=== PATIENT | female | born 1945 | race Caucasian/White ===

== ENCOUNTER 2016-08-19 07:05 | Outpatient (CLI) | payer MEDICARE, OTHER | END 2016-08-19 07:06 | disposition home or self-care (01) | DX: I10 Essential (primary) hypertension (principal) ==

== ENCOUNTER 2016-08-20 10:03 | Outpatient (CLI) | payer MEDICARE, OTHER | END 2016-08-20 10:04 | disposition home or self-care (01) | DX: N18.3 Chronic kidney disease, stage 3 (moderate) (principal) ==

== ENCOUNTER 2017-09-29 09:27 | Outpatient (CLI) | payer MEDICARE, OTHER ==
--- NOTE | 2017-09-29 13:56 | XRAY Report ---
CHEST TWO VIEWS: 09/29/2017 HISTORY: Cough. COMPARISON: 04/12/2013. FINDINGS: Postsurgical changes cervical spine as before. Normal heart size. Mildly coarse lung markings, right lower lung. Possible nodular density projected over the 4th right anterior rib at its junction with the 8th posterior rib. No other suspicious nodules. Densely calcified posterior mid right lung mass, as before. No pleural effusion or pneumothorax. Mild degenerative change in the spine. IMPRESSION: POSSIBLE NODULAR DENSITY RIGHT LOWER LUNG VERSUS SUPERIMPOSITION OF STRUCTURES. SUGGEST FOLLOWUP CHEST X-RAY IN 6-8 WEEKS AFTER ANY APPROPRIATE MEDICAL THERAPY. STABLE CALCIFIED POSTERIOR LEFT HEMITHORAX MASS. TD: 09/29/2017 13:38
[2017-09-29 17:58] LABS: ALBUMIN 4.3 g/dL (3.2-5.5); ALBUMIN/GLOBULIN RATIO 1.1 (1.0-2.2); BILIRUBIN,TOTAL 0.9 mg/dL (0.2-1.0); CALCIUM 9.3 mg/dL (8.5-10.3); CREATININE 1.1 mg/dL (0.4-1.0); TOTAL PROTEIN 8.1 g/dL (6.7-8.2)
[2017-09-29 18:02] LABS: BASOPHILS # (AUTO) 0.1 10^3/uL (0.0-0.1); BASOPHILS % (AUTO) 1.2 %; EOSINOPHILS # (AUTO) 0.2 10^3/uL (0.0-0.7); EOSINOPHILS % (AUTO) 3.6 %; HGB - HEMOGLOBIN 10.5 g/dL (12.0-16.0); LYMPHOCYTES # (AUTO) 1.5 10^3/uL (1.5-3.5); LYMPHOCYTES % (AUTO) 25.3 %; MEAN CORPUSCULAR HEMOGLOBIN 21.3 pg (27.0-31.0); MEAN CORPUSCULAR HGB CONC 30.4 g/dL (32.0-36.0); MEAN PLATELET VOLUME 7.5 fL (7.9-10.8); MONOCYTES # (AUTO) 0.8 10^3/uL (0.0-1.0); MONOCYTES % (AUTO) 14.1 %; NEUTROPHILS # (AUTO) 3.3 10^3/uL (1.5-6.6); NEUTROPHILS % (AUTO) 55.8 %; PLT - PLATELET COUNT 342 10^3/uL (130-450); RED BLOOD COUNT 4.92 10^6/uL (4.20-5.40); RED CELL DISTRIBUTION WIDTH 17.8 % (12.0-15.0); WHITE BLOOD COUNT 5.9 x10^3/uL (4.8-10.8)
== END 2017-09-29 09:28 | disposition home or self-care (01) ==
LOC: LAB.F 09:27
PROVIDERS: ATTEND Physician Assistant Medical
DX: R93.8 Abnormal findings on diagnostic imaging of other specified body structures (principal); R05 Cough
CPT/HCPCS: 36415; 71046; 80053; 85025

== ENCOUNTER 2017-11-23 08:28 | Outpatient (CLI) | payer MEDICARE, OTHER ==
--- NOTE | 2017-11-23 10:25 | XRAY Report ---
TWO VIEW CHEST: 11/23/2017 CLINICAL INDICATION: Followup abnormal chest x-ray. FINDINGS: Frontal and lateral views of the chest are compared to previous films of 09/29/2017. The cardiac silhouette is within normal limits. Previously noted possible nodule in the right mid lung has resolved. Calcification in the left posterior chest is stable from CT 08/13/2011. No new infiltrate, effusion, or pneumothorax is present. IMPRESSION: RESOLUTION OF PREVIOUSLY SEEN POSSIBLE RIGHT LUNG NODULE. NO EVIDENCE OF ACUTE CARDIOPULMONARY DISEASE. TD: 11/23/2017 09:48
== END 2017-11-23 08:29 | disposition home or self-care (01) ==
LOC: DI 08:28
PROVIDERS: ATTEND Physician Assistant Medical
DX: R91.8 Other nonspecific abnormal finding of lung field (principal)
CPT/HCPCS: 71046

== ENCOUNTER 2018-05-09 10:56 | Outpatient (CLI) | payer MEDICARE, OTHER ==
[2018-05-09 17:55] LABS: BASOPHILS # (AUTO) 0.1 10^3/uL (0.0-0.1); BASOPHILS % (AUTO) 1.2 %; EOSINOPHILS # (AUTO) 0.1 10^3/uL (0.0-0.7); EOSINOPHILS % (AUTO) 2.2 %; HGB - HEMOGLOBIN 8.5 g/dL (12.0-16.0); LYMPHOCYTES # (AUTO) 1.6 10^3/uL (1.5-3.5); LYMPHOCYTES % (AUTO) 34.6 %; MEAN CORPUSCULAR VOLUME 60.1 fL (81.0-99.0); MEAN PLATELET VOLUME 8.6 fL (7.9-10.8); MONOCYTES # (AUTO) 0.6 10^3/uL (0.0-1.0); MONOCYTES % (AUTO) 13.4 %; NEUTROPHILS # (AUTO) 2.3 10^3/uL (1.5-6.6); NEUTROPHILS % (AUTO) 48.6 %; PLT - PLATELET COUNT 329 10^3/uL (130-450); RED BLOOD COUNT 4.71 10^6/uL (4.20-5.40); RED CELL DISTRIBUTION WIDTH 19.6 % (12.0-15.0); WHITE BLOOD COUNT 4.7 x10^3/uL (4.8-10.8)
[2018-05-09 18:20] LABS: PLATELET ESTIMATE, MANUAL NORMAL (130-450,000) (NORMAL); PLATELET MORPHOLOGY NORMAL APPEARANCE (NORMAL)
[2018-05-09 18:24] LABS: ALBUMIN 4.4 g/dL (3.2-5.5); ALBUMIN/GLOBULIN RATIO 1.3 (1.0-2.2); BILIRUBIN,TOTAL 1.1 mg/dL (0.2-1.0); CALCIUM 9.2 mg/dL (8.5-10.3); TOTAL PROTEIN 7.8 g/dL (6.7-8.2)
[2018-05-09 19:16] LABS: MAGNESIUM 2.4 mg/dL (1.7-2.8)
== END 2018-05-09 10:57 | disposition home or self-care (01) ==
LOC: LAB.F 10:56
PROVIDERS: ATTEND Physician Assistant Medical
DX: N28.9 Disorder of kidney and ureter, unspecified (principal); D50.9 Iron deficiency anemia, unspecified; R25.2 Cramp and spasm; Z12.11 Encounter for screening for malignant neoplasm of colon; Z12.12 Encounter for screening for malignant neoplasm of rectum
CPT/HCPCS: 36415; 80053; 82728; 83540; 83735; 84466; 85025

== ENCOUNTER 2018-05-27 11:09 | Emergency (ER) | payer MEDICARE, OTHER ==
[2018-05-27 11:42] LABS: BASOPHILS # (AUTO) 0.1 10^3/uL (0.0-0.1); BASOPHILS % (AUTO) 1.3 %; EOSINOPHILS # (AUTO) 0.1 10^3/uL (0.0-0.7); EOSINOPHILS % (AUTO) 1.8 %; HGB - HEMOGLOBIN 9.2 g/dL (12.0-16.0); LYMPHOCYTES # (AUTO) 1.5 10^3/uL (1.5-3.5); LYMPHOCYTES % (AUTO) 28.8 %; MEAN CORPUSCULAR HEMOGLOBIN 19.3 pg (27.0-31.0); MEAN CORPUSCULAR HGB CONC 30.3 g/dL (32.0-36.0); MEAN CORPUSCULAR VOLUME 63.6 fL (81.0-99.0); MEAN PLATELET VOLUME 8.2 fL (7.9-10.8); MONOCYTES # (AUTO) 0.7 10^3/uL (0.0-1.0); MONOCYTES % (AUTO) 14.4 %; NEUTROPHILS # (AUTO) 2.8 10^3/uL (1.5-6.6); NEUTROPHILS % (AUTO) 53.7 %; PLT - PLATELET COUNT 365 10^3/uL (130-450); RED BLOOD COUNT 4.77 10^6/uL (4.20-5.40); RED CELL DISTRIBUTION WIDTH 25.4 % (12.0-15.0); WHITE BLOOD COUNT 5.2 x10^3/uL (4.8-10.8)
[2018-05-27 11:52] LABS: ALBUMIN 4.3 g/dL (3.2-5.5); ALBUMIN/GLOBULIN RATIO 1.3 (1.0-2.2); BILIRUBIN,TOTAL 0.8 mg/dL (0.2-1.0); CALCIUM 9.3 mg/dL (8.5-10.3); CREATININE 0.9 mg/dL (0.4-1.0); TOTAL PROTEIN 7.7 g/dL (6.7-8.2)
[2018-05-27 12:15] LABS: BILIRUBIN,URINE NEGATIVE (NEGATIVE); GLUCOSE, URINE (UA) NEGATIVE (NEGATIVE); KETONES,URINE (UA) NEGATIVE (NEGATIVE); LEUKOCYTE ESTERASE, URINE TRACE (NEGATIVE); NITRITE,URINE NEGATIVE (NEGATIVE); OCCULT BLOOD,URINE NEGATIVE (NEGATIVE); PH,URINE 6.5 PH (5.0-7.5); PROTEIN,URINE NEGATIVE (NEGATIVE); UROBILINOGEN,URINE 0.2 (NORMAL) E.U./dL (NORMAL)
[2018-05-27 12:16] LABS: CLARITY,URINE CLEAR (CLEAR)
--- NOTE | 2018-05-27 12:18 | XRAY Report ---
Reason: cough Procedure Date: 05/27/2018 Accession Number: [id number] / [id number] Procedure: XR - Chest 2 View X-Ray CPT Code: 15452 FULL RESULT: EXAM: CHEST RADIOGRAPHY EXAM DATE: 05/27/2018 11:37 AM. CLINICAL HISTORY: Cough. COMPARISON: CHEST 2 VIEW 11/23/2017 8:40 AM CHEST 2 VIEW 09/29/2017 10:54 AM CHEST 2 VIEW PA/LAT 04/12/2013 8:50 AM. TECHNIQUE: 2 views. FINDINGS: Lungs/Pleura: A posterior 3 cm left lung mass, paraspinal in location appears similar to prior studies dating back to 2012. Acute airspace disease detected. No pleural effusion or pneumothorax. Mediastinum: Heart and mediastinal contours are stable. Other: Cervical spinal fusion hardware is again noted. IMPRESSION: No acute cardiopulmonary abnormality. Redemonstration of a 3 cm calcified left posterior lung mass. While this has not significantly changed since 2012, I am unable to determine the etiology on plain radiograph. If the etiology is unknown and clarification is clinically warranted, consider routine outpatient chest CT. RAD[facility]
[2018-05-27 12:23] LABS: BACTERIA,URINE None Seen /HPF (None Seen); RBC,URINE None Seen /HPF (0-5); SQUAMOUS EPITHELIAL CELL,UR MOD Squamous (<= Few)
--- NOTE | 2018-05-27 12:25 | ED Physician Documentation ---
History of Present Illness - Stated complaint Stated Complaint: COUGH/ITCHING/LEG CRAMPS/WEAKNESS - Chief complaint Chief Complaint: General - History obtained from History obtained from: Patient - History of Present Illness Timing: Other (1 month of cough, worse in the last 2 weeks. Also with fatigue and leg cramps. She would like a transfusion, has appt 06/08 with heme/onc but feels she cannot wait.) Review of Systems Constitutional: reports: Fatigue. denies: Fever, Chills Cardiac: denies: Chest pain / pressure, Palpitations Respiratory: reports: Dyspnea, Cough GI: denies: Abdominal Pain, Nausea, Vomiting, Constipation, Diarrhea, Hematemesis, Bloody / black stool Skin: reports: Other (diffuse itching) PD PAST MEDICAL HISTORY - Past Medical History Cardiovascular: Hypertension, Other Respiratory: Asthma Endocrine/Autoimmune: None GI: GERD : Renal insuffiency, Frequency HEENT: None Psych: Depression, Anxiety, Claustrophobia Musculoskeletal: Osteoarthritis, Osteopenia Derm: None - Past Surgical History General: Appendectomy, Colonoscopy, EGD Ortho: Spine surgery /BARTACKER: Hysterectomy HEENT: Tonsil/Adenoidectomy - Present Medications Home Medications: Ambulatory Orders Medication Instructions Recorded Confirmed Benazepril/Hydrochlorothiazide 2 each PO QAM 07/10/13 05/27/18 [Benazepril-Hctz 20-12.5 mg Tab] Cholecalciferol (Vitamin D3) 50,000 unit PO ONCE 07/10/13 05/27/18 [Vitamin D3] Omeprazole 20 mg PO DAILY 07/10/13 05/27/18 Aspirin 81 mg PO 05/27/18 Benzonatate [Tessalon Perle] 100 - 200 mg PO TID PRN #30 capsule 05/27/18 Iron,Carbonyl [Iron Chews] 15 mg PO 05/27/18 hydrOXYzine PAMOATE [Vistaril] 25 mg PO Q6H PRN #20 capsule 05/27/18 predniSONE [Deltasone] 20 mg PO [id number] #21 tab 05/27/18 - Allergies Allergies/Adverse Reactions: Allergies Allergy/AdvReac Type Severity Reaction Status Date / Time codeine Allergy severe Verified 07/10/13 14:16 lethargy PD ED PE NORMAL - Vitals Vital signs reviewed: Yes - General General: Alert and oriented X 3, No acute distress - HEENT HEENT: PERRL, EOMI, Pharynx benign - Neck Neck: Supple, no meningeal sign, No bony TTP - Cardiac Cardiac: RRR, No murmur - Respiratory Respiratory: Other (Mild expiratory wheezes, no distress) - Abdomen Abdomen: Non tender - Extremities Extremities: No edema, No calf tenderness / cord - Neuro Neuro: Alert and oriented X 3, Normal speech - Psych Psych: Normal mood, Normal affect Results - Vitals Vitals: Vital Signs - 24 hr 05/27/18 11:17 Temperature 36.5 C Heart Rate 88 Respiratory 20 Rate Blood Pressure 131/70 H O2 Saturation 95 Oxygen O2 Source [] Nasal cannula O2 Source Room air - Labs Labs: Laboratory Tests 05/27/18 05/27/18 05/27/18 11:31 11:31 12:05 WBC 5.2 RBC 4.77 Hgb 9.2 L Hct 30.3 L MCV 63.6 L MCH 19.3 L MCHC 30.3 L RDW 25.4 H Plt Count 365 MPV 8.2 Neut # (Auto) 2.8 Lymph # (Auto) 1.5 [place] # (Auto) 0.7 Eos # (Auto) 0.1 Baso # (Auto) 0.1 Absolute Nucleated RBC 0.00 Nucleated RBC % 0.1 Sodium 134 L Potassium 4.2 Chloride 97 L Carbon Dioxide 29 Anion Gap 8.0 BUN 15 Creatinine 0.9 Estimated GFR (MDRD) 61 L Glucose 93 Calcium 9.3 Total Bilirubin 0.8 AST 31 ALT 23 Alkaline Phosphatase 117 Total Protein 7.7 Albumin 4.3 Globulin 3.4 Albumin/Globulin Ratio 1.3 Lipase 68 H Urine Color YELLOW Urine Clarity CLEAR Urine pH 6.5 Ur Specific [place] <=1.005 Urine Protein NEGATIVE Urine Glucose (UA) NEGATIVE Urine Ketones NEGATIVE Urine Occult Blood NEGATIVE Urine Nitrite NEGATIVE Urine Bilirubin NEGATIVE Urine Urobilinogen 0.2 (NORMAL) Ur Leukocyte Esterase TRACE H Urine RBC None Seen Urine WBC 0-3 Ur Squamous Epith Cells MOD Squamous H Urine Bacteria None Seen Ur Microscopic Review INDICATED Urine Culture Comments NOT INDICATED - Rads (name of study) 2v chest Radiology: EMP read contemporaneously (3cm left posterior lung mass unchanges since 2012. Review of chart shows CT done for same in 2012 and it was benign.) PD MEDICAL DECISION MAKING - ED course ED course: 72-year-old woman presents with fatigue, cough, and other nonspecific complaints. Her main concern today is that she might need a transfusion and request 1. Her hemoglobin does not merit to this. In the meantime we will start her on some prednisone for cough in the setting of underlying COPD, hydroxyzine which should help with the leg cramps and the itching and Tessalon. Departure - Departure Disposition: 01 Home, Self Care Clinical Impression: Itching Fatigue Qualifiers: Fatigue type: unspecified Qualified Code(s): R53.83 - Other fatigue Condition: Good Record reviewed to determine appropriate education?: Yes Instructions: Fatigue Manage, COPD Prescriptions: Benzonatate [Tessalon Perle] 100 - 200 mg PO TID PRN #30 capsule PRN Reason: Cough hydrOXYzine PAMOATE [Vistaril] 25 mg PO Q6H PRN #20 capsule PRN Reason: itching or cramps predniSONE [Deltasone] 20 mg PO [id number] #21 tab Comments: As discussed, your anemia is not too bad and does not merit transfusion at this juncture but does need to be followed. Keep the appointment to have in a couple of weeks with the oncologist and I also recommend following up with your primary care physician for further assessment of your fatigue. Return for new or worsening symptoms. Your blood pressure was elevated today on check into the emergency department. This does not mean that you have hypertension, it is a common phenomenon to come to the emergency department and have elevated blood pressure. I recommend that you see your primary care physician within the week to have it rechecked when you are feeling better.
[2018-05-27 12:54] VITALS: BP 118/78
== END 2018-05-27 12:56 | disposition home or self-care (01) ==
LOC: ED 11:09
DX: L29.9 Pruritus, unspecified (principal); R53.83 Other fatigue; R25.2 Cramp and spasm; I10 Essential (primary) hypertension; Z79.82 Long term (current) use of aspirin
CPT/HCPCS: 36415; 71046; 80053; 81001; 81003; 83690; 85025; 87086; 99283

== ENCOUNTER 2018-07-05 08:57 | Day surgery (SDC) | payer MEDICARE, OTHER ==
[~2018-07-05 08:57] MED LIST: LACTATED RINGERS 1,000 ML IV ONE
[2018-07-05] MEDS ORDERED: fentaNYL 250 MCG/5 ML VIAL IVP ONE (10:30)
[2018-07-05] MEDS ORDERED: MIDAZOLAM 2 MG/2 ML VIAL IVP ONE (10:30)
--- NOTE | 2018-07-05 10:59 | ANESTHESIA ---
Pre-Anesthesia VS, & Labs - Diagnosis positive cologuard - Procedure colonoscopy Vital Signs: Temp Pulse Resp BP Pulse Ox 36.3 C L 94 16 135/97 H 95 07/05/18 09:06 07/05/18 09:06 07/05/18 09:06 07/05/18 09:06 07/05/18 09:06 Height 5 ft 10 in Weight (kg) 94.7 kg Body Mass Index 28.7 - NPO >8 hours - Is Patient ?: Not Applicable Home Medications and Allergies Omeprazole 20 mg PO DAILY 07/10/13 Aspirin 81 mg PO DAILY 05/27/18 Benazepril/Hydrochlorothiazide [Lotensin Hct 20-12.5 mg Tablet] 1 tab ORAL DAILY 06/08/18 Multivitamin [Multivitamins] 1 tab ORAL DAILY 06/08/18 Allergies/Adverse Reactions: Allergies Allergy/AdvReac Type Severity Reaction Status Date / Time codeine Allergy severe Verified 07/10/13 14:16 lethargy Anes History & Medical History - Anesthetic History Anesthesia Complications: reports: No previous complications Family history of Anesthesia Complications: Denies Family history of Malignant Hyperthermia: Denies - Medical History Cardiovascular: reports: Hypertension, Other Pulmonary: reports: Asthma Gastrointestinal: reports: GERD Urinary: reports: None Musculoskeletal: reports: Osteoarthritis, Osteopenia Endocrine/Autoimmune: reports: None Skin: reports: None Smoking Status: Former smoker - Surgical History General: Appendectomy, Colonoscopy Eyes Ears Nose Throat (EENT): Tonsil/Adenoidectomy Gynecologic: Hysterectomy Orthopedic: Spine surgery Exam General: Alert, Oriented x3, Cooperative, No acute distress Mouth Openin Fingerbreadth (FB) Neck Mobility: Normal Mallampati classification: II Thyromental Distance: 4-6 cm Respiratory: Lungs clear, Normal breath sounds, No respiratory distress, No accessory muscle use Cardiovascular: Regular rate, Normal S1, Normal S2, No murmurs Plan Anesthesia Type: MAC Consent for Procedure(s) Verified and Reviewed: Yes Code Status: Attempt Resuscitation ASA classification: 2-Mild systemic disease Is this case an emergency?: No
[2018-07-05] MEDS ORDERED: PROPOFOL 200 MG/20 ML VIAL IVP ONE (11:47)
--- NOTE | 2018-07-05 12:16 | PROCEDURE REPORT ---
DATE OF SERVICE: 07/05/2018 Physician: Bryce Mujica MD SURGEON: Bryce Mujica MD. PREOPERATIVE DIAGNOSIS: Positive Cologuard. POSTOPERATIVE DIAGNOSIS: Arteriovenous malformation, cecum. PROCEDURE: Colonoscopy. INDICATION: The patient is a 72-year-old woman who had a positive Cologuard study, requesting colonoscopy. PROCEDURE IN DETAIL: The risks and benefits were explained to patient. She agreed to the procedure. She was taken to the operating room, given sedation, and a timeout was performed. Everyone in the room agreed to the procedure. We began by advancing a well-lubricated colonoscope through the anal vault up to the cecum. An arteriovenous malformation was seen in the wall of the cecum. A picture was taken. The scope was then slowly withdrawn, examining all mucosal surfaces. No other abnormalities were seen. The procedure was terminated. The patient was taken to recovery in stable condition. ESTIMATED BLOOD LOSS: Zero. SPECIMENS: None. COMPLICATIONS: None. PLAN: Repeat colonoscopy in 10 years. TD: 07/05/2018 11:56 MTDD
[2018-07-05 12:26] VITALS: BP 129/84
== END 2018-07-05 08:58 | disposition home or self-care (01) ==
LOC: SDS 08:57
PROVIDERS: ATTEND Surgery
PROC: 0DJD8ZZ Inspection of Lower Intestinal Tract, Via Natural or Artificial Opening Endoscopic (ICD-10-PCS; principal; 2018-07-05 10:00)
DX: K55.21 Angiodysplasia of colon with hemorrhage (principal); I10 Essential (primary) hypertension; J44.9 Chronic obstructive pulmonary disease, unspecified; J45.909 Unspecified asthma, uncomplicated; K21.9 Gastro-esophageal reflux disease without esophagitis; M19.90 Unspecified osteoarthritis, unspecified site; M85.80 Other specified disorders of bone density and structure, unspecified site; Z79.82 Long term (current) use of aspirin; Z87.891 Personal history of nicotine dependence
CPT/HCPCS: 45378; J7120

== ENCOUNTER 2018-08-03 13:08 | Outpatient (CLI) | payer MEDICARE, OTHER ==
--- NOTE | 2018-08-04 08:16 | Mammography Report ---
Reason: SCREENING MAMMO Procedure Date: 08/03/2018 Accession Number: [id number] / [id number] Procedure: ISAÍAS - Screening Mammo w/Segun CPT Code: FULL RESULT: EXAM: Screening Mammo w/Segun DATE: 08/03/2018 2:34 PM CLINICAL HISTORY: Routine screening. No reported personal or family history of breast cancer. TECHNIQUE: Bilateral CC and MLO views were obtained. COMPARISON: 11/14/2013 through 03/16/2011 FINDINGS: The breasts demonstrate scattered fibroglandular densities bilaterally. Bilateral breasts: There are no suspicious masses, calcifications or areas of distortion. IMPRESSION: Negative examination RECOMMENDATION: Routine annual screening unless otherwise clinically indicated. BI-RADS CATEGORY 1: Negative STANDARD QUALIFYING STATEMENTS: 1. This examination was not reviewed with the aid of Computer-Aided Detection (CAD). 2. A negative or benign imaging report should not preclude biopsy if clinically suspicious findings are present. 3. Dense breasts may obscure an underlying neoplasm. 4. This examination was reviewed with the aid of 3D breast imaging (tomosynthesis).
== END 2018-08-03 13:09 | disposition home or self-care (01) ==
LOC: DI 13:08
PROVIDERS: ATTEND Physician Assistant Medical
DX: Z12.31 Encounter for screening mammogram for malignant neoplasm of breast (principal)
CPT/HCPCS: 77063; 77067

== ENCOUNTER 2018-08-04 12:47 | Outpatient (CLI) | payer MEDICARE, OTHER | END 2018-08-04 12:48 | disposition home or self-care (01) | LOC: DI 12:47 | PROVIDERS: ATTEND Physician Assistant Medical | DX: Z78.0 Asymptomatic menopausal state (principal); Z53.9 Procedure and treatment not carried out, unspecified reason ==

== ENCOUNTER 2018-08-16 10:08 | Outpatient (CLI) | payer MEDICARE, OTHER ==
--- NOTE | 2018-08-17 08:34 | DEXA Report ---
Reason: ASYMPTOMATIC MENOPAUSAL STATE Procedure Date: 08/16/2018 Accession Number: [id number] / [id number] Procedure: DEX - Dexa Spine and/or Hip CPT Code: FULL RESULT: EXAM: Dexa Spine and/or Hip DATE: 08/16/2018 11:20 AM CLINICAL HISTORY: ASYMPTOMATIC MENOPAUSAL STATE TECHNIQUE: Dual energy x-ray absorptiometry (DXA) was performed on a [employer] System. Regions measured are the AP Spine, femoral neck, and if needed forearm. COMPARISON: None. In accordance with the International Society for Clinical Densitometry (ISCD) guidelines, data from previous exams may be reanalyzed using current recommendations and techniques. This is done to allow a more accurate basis for comparison with the current study. FINDINGS: The data for the lumbar spine is as follows: BMD (g/cm/cm) T-SCORE Z-SCORE REGION L1 1.019 -0.9 -0.1 L2 1.155 -0.4 0.4 L3 1.137 -0.5 0.3 L4 1.335 1.1 1.9 TOTAL 1.155 -0.2 0.6 NOTE: All evaluable vertebrae are used for classification The data for the hip is as follows: BMD (g/cm/cm) T-SCORE Z-SCORE REGION Neck 0.817 -1.6 -0.3 TOTAL 0.830 -1.4 -0.4 NOTE: The femoral neck or total proximal femur, whichever is lowest, is used for classification. IMPRESSION: THE WHO CLASSIFICATION BASED ON THE INTERNATIONAL REFERENCE STANDARD IS OSTEOPENIA. THE FRACTURE RISK IS INCREASED. RECOMMENDATION: Patients with diagnosis of osteoporosis or osteopenia should have regular bone mineral density assessment. For those eligible for Medicare, routine testing is allowed once every 2 years. Testing frequency can be increased for patients who have rapidly progressing disease or for those who are receiving medical therapy to restore bone mass. COMMENT: World Health Organization (WHO) definitions for osteoporosis and osteopenia: NORMAL BMD: T-score at -1.0 or higher, fracture risk is low OSTEOPENIA BMD: T-score between -1.0 and -2.5, fracture risk is increased. OSTEOPOROSIS BMD: T-score at -2.5 or lower, fracture risk is high. National Osteoporosis Foundation recommends: 1. Obtain adequate dietary calcium (at least 1200 mg per day) and vitamin D (400-800 international units per day). 2. Participate, as appropriate, in regular weightbearing and muscle-strengthening exercise. 3. Avoid tobacco use and reduce alcohol and caffeine intake. 4. For more detailed information see the website at www.NOF.org.
== END 2018-08-16 10:09 | disposition home or self-care (01) ==
LOC: DI 10:08
PROVIDERS: ATTEND Physician Assistant Medical
DX: M85.88 Other specified disorders of bone density and structure, other site (principal)
CPT/HCPCS: 77080

== ENCOUNTER 2018-09-28 08:54 | Outpatient (CLI) | payer MEDICARE, OTHER ==
[2018-09-28 10:38] LABS: BASOPHILS % (AUTO) 1.4 %; EOSINOPHILS # (AUTO) 0.2 10^3/uL (0.0-0.7); EOSINOPHILS % (AUTO) 5.3 %; HGB - HEMOGLOBIN 14.8 g/dL (12.0-16.0); LYMPHOCYTES # (AUTO) 1.2 10^3/uL (1.5-3.5); LYMPHOCYTES % (AUTO) 33.4 %; MEAN CORPUSCULAR HEMOGLOBIN 31.2 pg (27.0-31.0); MEAN CORPUSCULAR HGB CONC 33.9 g/dL (32.0-36.0); MEAN PLATELET VOLUME 7.5 fL (7.9-10.8); MONOCYTES # (AUTO) 0.4 10^3/uL (0.0-1.0); MONOCYTES % (AUTO) 11.4 %; NEUTROPHILS # (AUTO) 1.7 10^3/uL (1.5-6.6); NEUTROPHILS % (AUTO) 48.5 %; PLT - PLATELET COUNT 213 10^3/uL (130-450); RED BLOOD COUNT 4.74 10^6/uL (4.20-5.40); RED CELL DISTRIBUTION WIDTH 15.9 % (12.0-15.0); WHITE BLOOD COUNT 3.6 x10^3/uL (4.8-10.8)
[2018-09-28 11:36] LABS: ALBUMIN 4.5 g/dL (3.2-5.5); ALBUMIN/GLOBULIN RATIO 1.4 (1.0-2.2); BILIRUBIN,TOTAL 1.6 mg/dL (0.2-1.0); CALCIUM 9.4 mg/dL (8.5-10.3); CREATININE 0.7 mg/dL (0.4-1.0); TOTAL PROTEIN 7.7 g/dL (6.7-8.2)
== END 2018-09-28 08:55 | disposition home or self-care (01) ==
LOC: LAB.F 08:54
PROVIDERS: ATTEND Physician Assistant Medical
DX: N28.9 Disorder of kidney and ureter, unspecified (principal); D50.9 Iron deficiency anemia, unspecified
CPT/HCPCS: 36415; 80053; 82728; 83540; 84466; 85025

== ENCOUNTER 2020-11-12 10:28 | Outpatient (CLI) | payer MEDICARE ==
[2020-11-12 11:06] LABS: BASOPHILS # (AUTO) 0.1 10^3/uL (0.0-0.1); BASOPHILS % (AUTO) 1.4 %; EOSINOPHILS # (AUTO) 0.1 10^3/uL (0.0-0.7); EOSINOPHILS % (AUTO) 2.6 %; HCT - HEMATOCRIT 44.9 % (37.0-47.0); LYMPHOCYTES # (AUTO) 1.5 10^3/uL (1.5-3.5); LYMPHOCYTES % (AUTO) 36.3 %; MEAN CORPUSCULAR HEMOGLOBIN 31.3 pg (27.0-31.0); MEAN CORPUSCULAR HGB CONC 33.4 g/dL (32.0-36.0); MEAN CORPUSCULAR VOLUME 93.5 fL (81.0-99.0); MEAN PLATELET VOLUME 8.7 fL (7.9-10.8); MONOCYTES # (AUTO) 0.6 10^3/uL (0.0-1.0); MONOCYTES % (AUTO) 14.3 %; NEUTROPHILS # (AUTO) 1.9 10^3/uL (1.5-6.6); NEUTROPHILS % (AUTO) 44.9 %; PLT - PLATELET COUNT 217 10^3/uL (130-450); RED CELL DISTRIBUTION WIDTH 13.8 % (12.0-15.0); WHITE BLOOD COUNT 4.2 x10^3/uL (4.8-10.8)
[2020-11-12 11:44] LABS: CHOL/HDL RATIO 2.4 (<4.4); CHOLESTEROL 192 mg/dL; HDL CHOLESTEROL 79 mg/dL; LDL CHOLESTEROL,CALCULATED 65 mg/dL; LDL/HDL RATIO 0.8 (<4.4); TRIGLYCERIDES 242 mg/dL; VLDL CHOLESTEROL 48 mg/dL
== END 2020-11-12 10:29 | disposition home or self-care (01) ==
LOC: LAB 10:28
PROVIDERS: ATTEND Physician Assistant
DX: Z00.00 Encounter for general adult medical examination without abnormal findings (principal); I10 Essential (primary) hypertension; D50.9 Iron deficiency anemia, unspecified
CPT/HCPCS: 36415; 80061; 83721; 85025

== ENCOUNTER 2021-10-24 07:33 | Outpatient (CLI) | payer MEDICARE ==
[2021-10-24 15:21] LABS: EOSINOPHILS # (AUTO) 0.1 10^3/uL (0.0-0.7); EOSINOPHILS % (AUTO) 2.8 %; HCT - HEMATOCRIT 41.2 % (37.0-47.0); HGB - HEMOGLOBIN 13.5 g/dL (12.0-16.0); LYMPHOCYTES # (AUTO) 1.6 10^3/uL (1.5-3.5); MEAN CORPUSCULAR HEMOGLOBIN 31.2 pg (27.0-31.0); MEAN CORPUSCULAR HGB CONC 32.8 g/dL (32.0-36.0); MEAN CORPUSCULAR VOLUME 95.2 fL (81.0-99.0); MEAN PLATELET VOLUME 9.2 fL (7.9-10.8); MONOCYTES # (AUTO) 0.5 10^3/uL (0.0-1.0); MONOCYTES % (AUTO) 13.4 %; NEUTROPHILS # (AUTO) 1.6 10^3/uL (1.5-6.6); NEUTROPHILS % (AUTO) 41.3 %; PLT - PLATELET COUNT 233 10^3/uL (130-450); RED BLOOD COUNT 4.33 10^6/uL (4.20-5.40); RED CELL DISTRIBUTION WIDTH 14.3 % (12.0-15.0)
[2021-10-24 15:41] LABS: % IRON SATURATION 23 % (20-50); ALBUMIN 4.1 g/dL (3.2-5.5); ALBUMIN/GLOBULIN RATIO 1.4 (1.0-2.2); ALKALINE PHOSPHATASE 118 IU/L (42-121); ALT ALANINE AMINOTRANSFERASE 28 IU/L (10-60); AST ASPARTATE AMINOTRANSFERASE 36 IU/L (10-42); BILIRUBIN,TOTAL 1.1 mg/dL (0.2-1.0); BUN - BLOOD UREA NITROGEN 15 mg/dL (6-20); CALCIUM 9.4 mg/dL (8.5-10.3); CARBON DIOXIDE - CO2 29 mmol/L (21-32); CHLORIDE 98 mmol/L (101-111); CHOL/HDL RATIO 2.6 (<4.4); CHOLESTEROL 167 mg/dL; CREATININE 0.8 mg/dL (0.4-1.0); GFR - MDRD 70 (>89); GLUCOSE 93 mg/dL (70-100); HDL CHOLESTEROL 65 mg/dL; IRON 79 ug/dL (28-170); LDL CHOLESTEROL,CALCULATED 70 mg/dL; LDL/HDL RATIO 1.1 (<4.4); POTASSIUM 4.2 mmol/L (3.5-5.0); SODIUM 135 mmol/L (135-145); TOTAL IRON BINDING CAPACITY 337 ug/dL (250-450); TOTAL PROTEIN 7.1 g/dL (6.7-8.2); TRANSFERRIN 241 mg/dL (192-382); TRIGLYCERIDES 161 mg/dL; VLDL CHOLESTEROL 32 mg/dL
[2021-10-24 15:49] LABS: THYROID STIMULATING HORMONE 1.52 uIU/mL (0.34-5.60)
[2021-10-24 15:55] LABS: FERRITIN 154.6 ng/mL (11.0-306.8)
== END 2021-10-24 07:34 | disposition home or self-care (01) ==
LOC: LAB.S 07:33
PROVIDERS: ATTEND Nurse Practitioner Family
DX: D50.9 Iron deficiency anemia, unspecified (principal); I10 Essential (primary) hypertension; Z13.220 Encounter for screening for lipoid disorders
CPT/HCPCS: 36415; 80053; 80061; 82728; 83540; 83721; 84443; 84466; 85025

== ENCOUNTER 2022-08-24 13:50 | Outpatient (CLI) | payer MEDICARE ==
--- NOTE | 2022-08-24 18:18 | XRAY Report ---
PROCEDURE: Hand 3 View LT INDICATIONS: PAIN OF LEFT WRIST TECHNIQUE: 3 views of the hand(s) acquired. COMPARISON: Left wrist radiographs same day FINDINGS: Bones: No acute fracture or dislocation identified. Polyarticular degenerative changes of the hand, most severe at the fifth digit DIP joint, moderate at other IP joints. Periarticular lucencies presen t indeterminate for subchondral cystic change or erosions. Soft tissues: No suspicious soft tissue calcifications. IMPRESSION: 1. No acute fracture or dislocation identified. 2. Polyarticular degenerative changes of the hand most severe at the fifth digit PIP joint. Periartic ular lucencies also demonstrated indeterminate for subchondral cystic change or erosions. Reviewed by: Philippe Cervantes MD on 08/24/2022 6:17 PM PST Approved by: Philippe Cervantes MD on 08/24/2022 6:17 PM PST Station ID: [id number]
--- NOTE | 2022-08-24 18:25 | XRAY Report ---
PROCEDURE: Wrist 3 View LT INDICATIONS: PAIN OF LEFT WRIST TECHNIQUE: 3 views of the wrist were acquired. COMPARISON: Left hand radiographs same day FINDINGS: Bones: No acute fractures or dislocations. No suspicious bony lesions. Moderate degenerative muro es at the first CMC and STT joints. Soft tissues: No suspicious soft tissue calcifications. IMPRESSION: No acute fracture or dislocation identified. Moderate first CMC and STT joint degenerative changes. If symptoms persist, follow-up radiographs and/or CT or MRI may be helpful for further evaluation. Reviewed by: Philippe Cervantes MD on 08/24/2022 6:23 PM [facility] Approved by: Philippe Cervantes MD on 08/24/2022 6:23 PM [facility] Station ID: [id number]
== END 2022-08-24 13:51 | disposition home or self-care (01) ==
LOC: DI.S 13:50
PROVIDERS: ATTEND Nurse Practitioner Family
DX: M18.12 Unilateral primary osteoarthritis of first carpometacarpal joint, left hand (principal); M19.032 Primary osteoarthritis, left wrist

== ENCOUNTER 2023-06-07 08:32 | Outpatient (CLI) | payer MEDICARE ==
[2023-06-07 15:42] LABS: ALBUMIN 4.4 g/dL (3.2-5.5); ALBUMIN/GLOBULIN RATIO 1.4 (1.0-2.2); BILIRUBIN,TOTAL 1.6 mg/dL (0.2-1.0); CALCIUM 9.7 mg/dL (8.5-10.3); CREATININE 1.2 mg/dL (0.6-1.3); POTASSIUM 4.3 mmol/L (3.5-4.5); TOTAL PROTEIN 7.5 g/dL (6.4-8.9)
== END 2023-06-07 08:33 | disposition home or self-care (01) ==
LOC: LAB.S 08:32
PROVIDERS: ATTEND Physician Assistant
DX: N28.9 Disorder of kidney and ureter, unspecified (principal); R79.89 Other specified abnormal findings of blood chemistry
CPT/HCPCS: 36415; 80053

== ENCOUNTER 2023-06-10 09:57 | Outpatient (CLI) | payer MEDICARE ==
--- NOTE | 2023-06-10 13:22 | Ultrasound Report ---
PROCEDURE: Abdomen Limited INDICATIONS: ELEVATED LIVER ENZYMES TECHNIQUE: Real-time focused scanning was performed of the abdomen, with image documentation. COMPARISONS: None. FINDINGS: Liver: Liver is normal in size. The liver is increased in echogenicity. Gallbladder: Unremarkable. Biliary ducts: Intrahepatic bile ducts are non-dilated. Extrahepatic bile duct caliber measures 5.9 mm. Normal is 6-7 mm or less in diameter, or 10 mm or less post-cholecystectomy. Pancreas: Visualized portions of the pancreas are sonographically normal. Pancreas is not seen secon lee overlying bowel gas. Right kidney: Normal in size and echotexture. Right kidney measures 10.1 cm long. No hydronephrosis or nephrolithiasis. No solid masses. No complex renal cystic lesions which require follow-up. IMPRESSION: Increased hepatic echogenicity is noted, possibly related to the hepatic steatosis but other sources of hepatocellular disease cannot be excluded. Recommend clinical correlation. Reviewed by: Ludwig Delatorre MD on 06/10/2023 1:21 PM PST Approved by: Ludwig Delatorre MD on 06/10/2023 1:21 PM PST Station ID: [id number]
== END 2023-06-10 09:58 | disposition home or self-care (01) ==
LOC: DI 09:57
PROVIDERS: ATTEND Nurse Practitioner Family
DX: R74.01 Elevation of levels of liver transaminase levels (principal)

== ENCOUNTER 2024-03-08 13:16 | Outpatient (CLI) | payer MEDICARE ==
--- NOTE | 2024-03-09 11:40 | DEXA Report ---
PROCEDURE: Dexa Spine and/or Hip INDICATIONS: OSTEOPENIA TECHNIQUE: Dual energy x-ray absorptiometry (DEXA) was performed in the regions detailed below. COMPARISON: 08/16/2018 FINDINGS: Lumbar Spine: Bone Mineral Density 1.131 g/cm/cm,T score -0.4. Previously -0.2 Left Femoral Neck: Bone Mineral Density 0.820 g/cm/cm, T score -1.6. Previously -1.6 Left Total Hip: Bone Mineral Density 0.770 g/cm/cm,T score -1.9. Previously -1.4 FRAX 10-year Fracture Risk Assesment Tool 10 year risk of major osteoporotic fracture: 19.2% 10 year risk of hip fracture: 4.2% (T score greater or equal to -1.0: NORMAL) (T score from -1.1 to -2.4: OSTEOPENIA) (T score less than or equal to -2.5 to: OSTEOPOROSIS) IMPRESSION: Worsening osteopenia Patients with diagnosis of osteoporosis or osteopenia should have regular bone mineral density assess ment. For those eligible for Medicare, routine testing is allowed once every 2 years. Testing frequ ency can be increased for patients who have rapidly progressing disease or for those who are receivin g medical therapy to restore bone mass. Reviewed by: Dell Stokes MD on 03/09/2024 10:39 AM [facility] Approved by: Dell Stokes MD on 03/09/2024 10:39 AM [facility] Station ID: [id number]
== END 2024-03-08 13:17 | disposition home or self-care (01) ==
LOC: DI 13:16
PROVIDERS: ATTEND Nurse Practitioner Family
DX: M85.89 Other specified disorders of bone density and structure, multiple sites (principal)

== ENCOUNTER 2024-10-07 12:22 | Observation (INO) ==
--- NOTE | 2024-10-07 12:36 | ED Physician Documentation ---
History of Present Illness Stated complaint Stated Complaint: BACK PX Chief complaint Chief Complaint: Back Pain Additonal information Additional information: 79-year-old with history of atrial fibrillation and hypertension presents with lightheadedness and back and leg pain. Patient reportedly was admitted to the hospital at [facility] last week for an hypotensive episode. She was discharged home and reportedly has been having back and bilateral leg pain since. She has been having difficulty ambulating secondary to the pain. Her blood pressure has also been low. She is taking her blood pressure medications as prescribed. She reportedly was decreased from 60 mg furosemide to 20 mg daily last week. She is unsure why she is on furosemide when I asked. She denies any numbness or tingling of her legs. She has not had any bowel or bladder incontinence. Meds/Allgy Home Medications Ambulatory Orders Medication Instructions Recorded Confirmed omeprazole 20 mg tablet,delayed 20 mg PO DAILY 07/10/13 08/19/24 release benazepril 20 1 tab ORAL DAILY 06/08/18 08/19/24 mg-hydrochlorothiazide 12.5 mg tablet (Lotensin HCT) multivitamin 1 tab ORAL DAILY 06/08/18 08/19/24 albuterol sulfate 90 mcg/actuation 1 inh inhalation QID 08/09/24 08/19/24 aerosol inhaler (Ventolin HFA) apixaban 5 mg tablet (Eliquis) 5 mg PO BID 08/09/24 08/19/24 atorvastatin 20 mg tablet (Lipitor) 20 mg PO QDAY 08/09/24 08/19/24 furosemide 20 mg tablet 20 mg PO BID 08/09/24 08/19/24 gabapentin 300 mg capsule 300 mg PO HS PRN pain #30 caps 08/09/24 08/19/24 losartan 25 mg tablet 25 mg PO BID 08/09/24 08/19/24 spironolactone 25 mg tablet 25 mg PO QDAY 08/09/24 08/19/24 tramadol 50 mg tablet 50 mg PO HS PRN pain #10 tabs 08/09/24 08/19/24 gabapentin 600 mg tablet 600 mg PO TID #90 tabs 08/16/24 08/19/24 potassium chloride 20 mEq 20 meq PO QDAY #90 tabs 08/16/24 08/19/24 tablet,extended release(part/cryst) (Klor-Con M) tramadol 50 mg tablet 50 mg PO QDAY PRN breakthrough 08/18/24 08/19/24 pain, severe #20 tabs cephalexin 500 mg capsule 500 mg PO QID 7 days #28 caps 08/19/24 Allergies Allergies Allergy/AdvReac Type Severity Reaction Status Date / Time codeine Allergy severe Verified 10/07/24 12:26 lethargy PFSH Active Problems All Active Problems (Updated 10/07/24 @ 17:10 by Billy Taylor MD) Bilateral thigh pain (Acute) Back pain (Acute) Orthostatic hypotension (Acute) Cellulitis (Acute) Neuropathy of foot (Acute) Foot pain (Acute) Peripheral edema (Acute) Insomnia (Acute) Fatigue (Acute) Itching (Acute) Social History Social History (Updated 08/19/24 @ 17:06 by Raven Gifford RN) Smoking Status: Former smoker If you are a former smoker, when did you quit? (Date/Year): 22 yrs Number of Years Smoked: 40 How many cigarettes a day do you smoke? (20 cigarettes=1 Pk): 20 Do you dip or chew tobacco?: No Patient requests smoking cessation consult: No Initiate information on smoking cessation: No Living arrangement: At home Relationship: Do you feel safe in your home environment?: Yes Suffered physical, verbal, emotional, or financial abuse?: No History of Abuse: No POLST Patient has POLST: No Exam Exam Vital Signs: Vital Signs x48h Temp Pulse Pulse Pulse Pulse Resp BP 10/07/24 18:00 79 24 99/49 L 10/07/24 17:26 83 16 110/69 10/07/24 17:00 77 20 119/68 10/07/24 16:58 85 99 75 10/07/24 16:11 74 19 89/62 L 10/07/24 15:41 89/60 L 10/07/24 15:39 79 25 H 106/68 10/07/24 15:33 77/48 L 10/07/24 15:11 68 23 105/40 L 10/07/24 14:43 81 24 97/47 L 10/07/24 14:08 82 21 116/58 L 10/07/24 13:56 92 19 94/56 L 10/07/24 13:44 81 24 108/60 10/07/24 12:56 85 18 100/61 10/07/24 12:46 83 18 116/65 10/07/24 12:36 87 14 110/63 10/07/24 12:26 36.8 C 97 18 70/52 L BP BP BP Pulse Ox 10/07/24 18:00 95 10/07/24 17:26 96 10/07/24 17:00 100 10/07/24 16:58 94/59 L 79/52 L 102/63 10/07/24 16:11 90 L 10/07/24 15:41 10/07/24 15:39 95 10/07/24 15:33 10/07/24 15:11 92 10/07/24 14:43 94 10/07/24 14:08 95 10/07/24 13:56 92 10/07/24 13:44 94 10/07/24 12:56 94 10/07/24 12:46 97 10/07/24 12:36 99 10/07/24 12:26 97 Resting comfortably in no distress. She does have bilateral anterior thigh pain with passive extension of both legs. She has no lumbar spinal tenderness or paraspinal tenderness. Lungs clear to auscultation bilaterally. No abdominal tenderness. Pulses of the bilateral lower extremities are 1+ in the popliteal, DP, and PT. Sensation of the lower extremities intact. Patient reports significant bilateral thigh pain when trying to raise legs off stretcher. Results Vitals Vitals: Vital Signs - 24 hr 10/07/24 12:26 10/07/24 12:36 10/07/24 12:46 Temperature 36.8 C Temperature Source Tympanic Pulse Rate 97 87 83 Pulse Rate [Sitting] Pulse Rate [Standing] Pulse Rate [Supine] Respiratory Rate 18 14 18 Blood Pressure 70/52 L 110/63 116/65 Blood Pressure [Sitting] Blood Pressure [Standing] Blood Pressure [Supine] O2 Saturation 97 99 97 O2 Source Room air Room air Room air Pain Intensity 8 7 10/07/24 12:56 10/07/24 13:13 10/07/24 13:13 Temperature Temperature Source Pulse Rate 85 Pulse Rate [Sitting] Pulse Rate [Standing] Pulse Rate [Supine] Respiratory Rate 18 Blood Pressure 100/61 Blood Pressure [Sitting] Blood Pressure [Standing] Blood Pressure [Supine] O2 Saturation 94 O2 Source Room air Pain Intensity 7 7 7 10/07/24 13:44 10/07/24 13:56 10/07/24 14:08 Temperature Temperature Source Pulse Rate 81 92 82 Pulse Rate [Sitting] Pulse Rate [Standing] Pulse Rate [Supine] Respiratory Rate 24 19 21 Blood Pressure 108/60 94/56 L 116/58 L Blood Pressure [Sitting] Blood Pressure [Standing] Blood Pressure [Supine] O2 Saturation 94 92 95 O2 Source Room air Room air Room air Pain Intensity 10/07/24 14:43 10/07/24 15:11 10/07/24 15:33 Temperature Temperature Source Pulse Rate 81 68 Pulse Rate [Sitting] Pulse Rate [Standing] Pulse Rate [Supine] Respiratory Rate 24 23 Blood Pressure 97/47 L 105/40 L 77/48 L Blood Pressure [Sitting] Blood Pressure [Standing] Blood Pressure [Supine] O2 Saturation 94 92 O2 Source Room air Room air Pain Intensity 10/07/24 15:39 10/07/24 15:41 10/07/24 16:11 Temperature Temperature Source Pulse Rate 79 74 Pulse Rate [Sitting] Pulse Rate [Standing] Pulse Rate [Supine] Respiratory Rate 25 H 19 Blood Pressure 106/68 89/60 L 89/62 L Blood Pressure [Sitting] Blood Pressure [Standing] Blood Pressure [Supine] O2 Saturation 95 90 L O2 Source Room air Pain Intensity 10/07/24 16:58 10/07/24 17:00 10/07/24 17:26 Temperature Temperature Source Pulse Rate 77 83 Pulse Rate [Sitting] 85 Pulse Rate [Standing] 99 Pulse Rate [Supine] 75 Respiratory Rate 20 16 Blood Pressure 119/68 110/69 Blood Pressure [Sitting] 94/59 L Blood Pressure [Standing] 79/52 L Blood Pressure [Supine] 102/63 O2 Saturation 100 96 O2 Source Room air Room air Pain Intensity 10/07/24 18:00 Temperature Temperature Source Pulse Rate 79 Pulse Rate [Sitting] Pulse Rate [Standing] Pulse Rate [Supine] Respiratory Rate 24 Blood Pressure 99/49 L Blood Pressure [Sitting] Blood Pressure [Standing] Blood Pressure [Supine] O2 Saturation 95 O2 Source Room air Pain Intensity Oxygen O2 Source [With Activity] Nasal cannula O2 Source Room air EKG (time done) 12:57: EKG releavant findings:: EKG personally interpreted by author of this note. Relevant findings are: Rate: Rate (enter#) (83) Rhythm: NSR [place]: Normal Intervals: Normal [place] QRS: QRS normal Ischemia: Normal ST segments Labs Labs: Laboratory Tests 10/07/24 10/07/24 12:45 17:01 Sodium 129 L Potassium 4.6 H Chloride 93 L Carbon Dioxide 28 Anion Gap 8.0 BUN 33 H Creatinine 1.4 H Estimated GFR (MDRD) 36 L Glucose 95 Lactic Acid 1.0 Calcium 8.7 Total Bilirubin 1.5 H AST 142 H ALT 47 Alkaline Phosphatase 96 Total Protein 6.7 Albumin 3.5 Globulin 3.2 Albumin/Globulin Ratio 1.1 PD Medical Decision Making ED course ED course: Presents with back and thigh pain as well as low blood pressure. Her initial blood pressure here was significantly hypotensive. Upon recheck it normalized. I did give her 500 mL of normal saline. We tried to ambulate her again and she got hypotensive when standing. After another 500 mL of fluids, she once again became hypotensive with standing. I did obtain CT imaging of her lumbar spine which showed no significant acute pathology to explain her symptoms. I did perform a bedside ultrasound of her arteries of the lower extremities and dopplerable pulses were obtained. There is some atherosclerosis of the right common femoral artery. ECG without ischemic abnormalities or arrhythmia. Labs do show mildly elevated creatinine. I am concerned her blood pressure medications may be too high and she may be over diuresed leading to orthostatic hypotension. I see no indication for MRI of her back as her bilateral thigh pain does not appear to be consistent with the L5 and S1 disease noted on the CT scan. Hip radiograph interpreted by me as no acute bony abnormality. Patient to be admitted for observation for orthostatic hypotension. Discharge Plan Discharge Patient Disposition: ED Place in Observation Clinical Impression: Orthostatic hypotension, Back pain, Bilateral thigh pain
[2024-10-07] MEDS: SODIUM CHLORIDE 0.9% 500 ML IV ONE ×2 (12:55→15:38)
--- OUTSIDE RECORDS SUMMARY | 2024-10-07 13:10 | EXTERNAL MEDICAL SUMMARY RPT | Continuity of Care Document ---
Author Organization [facility] Address [address] [place] [id number] Phone Problems date description facility 2024-08-09 10:15 Insomnia, unspecified [facility] 2024-08-09 10:15 Pain in unspecified foot [facility] 2024-08-09 10:15 Localized edema [facility] 2024-08-16 08:47 Insomnia, unspecified [facility] 2024-08-16 08:47 Unspecified mononeuropathy of u nspecified lower limb [facility] 2024-08-16 08:47 Pain in unspecified foot [facility] 2024-08-16 08:47 Other fatigue [facility] 2024-08-16 08:47 Localized edema [facility] 2024-08-16 10:18 Insomnia, unspecified [facility] 2024-08-16 10:18 Unspecified mononeuropathy of u nspecified lower limb [facility] 2024-08-16 10:18 Pain in unspecified foot [facility] 2024-08-16 10:18 Other fatigue [facility] 2024-08-16 10:18 Localized edema [facility] 2024 16:26 Pain in unspecified foot [facility] 2024 18:16 Cellulitis, unspecified [facility] 2024 23:33 Cellulitis, unspecified [facility] 2024-08-21 07:29 Cellulitis, unspecified [facility] 2024-08-24 10:52 Cellulitis, unspecified [facility] 2024-08-24 10:52 Pain in left foot [facility] 2024-08-24 10:52 Localized swelling, mass and allan mp, left lower limb [facility] 2024-09-23 09:02 Chronic obstructive pulmonary d isease, unspecified [employer] 2024-09-24 00:01 Chronic obstructive pulmonary d isease, unspecified [employer] [facility] 2024-09-29 13:45 [facility], [facility] Social History date description facility
[2024-10-07 13:13] LABS: ALBUMIN 3.5 g/dL (3.2-5.5); ALBUMIN/GLOBULIN RATIO 1.1 (1.0-2.2); BILIRUBIN,TOTAL 1.5 mg/dL (0.2-1.0); CALCIUM 8.7 mg/dL (8.5-10.3); CREATININE 1.4 mg/dL (0.6-1.3); POTASSIUM 4.6 mmol/L (3.5-4.5); TOTAL PROTEIN 6.7 g/dL (6.4-8.9)
[2024-10-07] MEDS: LIDOCAINE PATCH 4% TOP STA (13:13)
[2024-10-07] MEDS: KETOROLAC 15 MG/ML VIAL IVP STA (13:13)
[2024-10-07] MEDS: ACETAMINOPHEN 500 MG TABLET PO STA (13:13)
--- NOTE | 2024-10-07 18:07 | HISTORY & PHYSICAL EXAMINATION ---
Chief Complaint Chief Complaint Chief Complaint: Back pain History of Present Illness Admitted From Admitted From:: Home with History Obtained From History obtained from: Patient interview History of Present Illness HPI Comment/Other: 79-year-old female with history of A-fib on Eliquis presents to the hospital with back and thigh pain. She states that she was recently admitted to [facility] for low blood pressure and sent home about a week ago. She states that her back pain has been getting worse since then. She describes this as spasmic perispinal pain. Her endorses that she is required assistance getting off the toilet. In the ER, CT of L-spine was unimpressive. Lab work revealed a increase in her creatinine to 1.4 as well as a sodium of 129. ER staff attempted to get her to ambulate, but she experienced orthostatic hypotension. She reports being on a total of 60 mg of Lasix a day, but this has been recently reduced due to same symptoms. She was given 1 L of NS and hospitalist was contacted for admission for hyponatremia, orthostatic hypotension with dizziness and back pain Meds/Allgy Home Medications Ambulatory Orders Medication Instructions Recorded Confirmed omeprazole 20 mg tablet,delayed 20 mg PO DAILY 07/10/13 08/19/24 release benazepril 20 1 tab ORAL DAILY 06/08/18 08/19/24 mg-hydrochlorothiazide 12.5 mg tablet (Lotensin HCT) multivitamin 1 tab ORAL DAILY 06/08/18 08/19/24 albuterol sulfate 90 mcg/actuation 1 inh inhalation QID 08/09/24 08/19/24 aerosol inhaler (Ventolin HFA) apixaban 5 mg tablet (Eliquis) 5 mg PO BID 08/09/24 08/19/24 atorvastatin 20 mg tablet (Lipitor) 20 mg PO QDAY 08/09/24 08/19/24 furosemide 20 mg tablet 20 mg PO BID 08/09/24 08/19/24 gabapentin 300 mg capsule 300 mg PO HS PRN pain #30 caps 08/09/24 08/19/24 losartan 25 mg tablet 25 mg PO BID 08/09/24 08/19/24 spironolactone 25 mg tablet 25 mg PO QDAY 08/09/24 08/19/24 tramadol 50 mg tablet 50 mg PO HS PRN pain #10 tabs 08/09/24 08/19/24 gabapentin 600 mg tablet 600 mg PO TID #90 tabs 08/16/24 08/19/24 potassium chloride 20 mEq 20 meq PO QDAY #90 tabs 08/16/24 08/19/24 tablet,extended release(part/cryst) (Klor-Con M) tramadol 50 mg tablet 50 mg PO QDAY PRN breakthrough 08/18/24 08/19/24 pain, severe #20 tabs cephalexin 500 mg capsule 500 mg PO QID 7 days #28 caps 08/19/24 Allergies Allergies Allergy/AdvReac Type Severity Reaction Status Date / Time codeine Allergy severe Verified 10/07/24 12:26 lethargy PFSH Active Problems All Active Problems (Updated 10/07/24 @ 17:10 by Billy Taylor MD) Bilateral thigh pain (Acute) Back pain (Acute) Orthostatic hypotension (Acute) Cellulitis (Acute) Neuropathy of foot (Acute) Foot pain (Acute) Peripheral edema (Acute) Insomnia (Acute) Fatigue (Acute) Itching (Acute) Social History Social History (Updated 08/19/24 @ 17:06 by Raven Gifford RN) Smoking Status: Never smoker If you are a former smoker, when did you quit? (Date/Year): 22 yrs Number of Years Smoked: 40 How many cigarettes a day do you smoke? (20 cigarettes=1 Pk): 20 Do you dip or chew tobacco?: No Do you vape?: No Patient requests smoking cessation consult: No Initiate information on smoking cessation: No Living arrangement: At home Relationship: Level: Independent Do you feel safe in your home environment?: Yes Suffered physical, verbal, emotional, or financial abuse?: No History of Abuse: No POLST Patient has POLST: No Review of Systems Status of ROS: 10 or more systems reviewed and unremarkable except as noted in history and below Constitutional Denies: Fever or Chills Cardiovascular Denies: Irregular heart rate, chest pain, palpitations, edema or shortness of breath with exertion Respiratory Denies: Shortness of breath or Cough Gastrointestinal Denies: Abdominal pain Musculoskeletal Reports: Back pain (Spasmic perispinal lumbar back pain) Exam Exam Vital Signs: Vital Signs x48h Temp Pulse Pulse Pulse Pulse Pulse Resp 10/07/24 19:05 36.6 C 79 16 10/07/24 18:00 79 24 10/07/24 17:26 83 16 10/07/24 17:00 77 20 10/07/24 16:58 85 99 75 10/07/24 16:11 74 19 10/07/24 15:41 10/07/24 15:39 79 25 H 10/07/24 15:33 10/07/24 15:11 68 23 10/07/24 14:43 81 24 10/07/24 14:08 82 21 10/07/24 13:56 92 19 10/07/24 13:44 81 24 BP BP BP BP BP Pulse Ox 10/07/24 19:05 104/61 93 10/07/24 18:00 99/49 L 95 10/07/24 17:26 110/69 96 10/07/24 17:00 119/68 100 10/07/24 16:58 94/59 L 79/52 L 102/63 10/07/24 16:11 89/62 L 90 L 10/07/24 15:41 89/60 L 10/07/24 15:39 106/68 95 10/07/24 15:33 77/48 L 10/07/24 15:11 105/40 L 92 10/07/24 14:43 97/47 L 94 10/07/24 14:08 116/58 L 95 10/07/24 13:56 94/56 L 92 10/07/24 13:44 108/60 94 Constitutional normal general appearance and no apparent distress HENMT normocephalic and head/scalp atraumatic Eyes PERRL Neck/C-Spine visual inspection normal Lymph no lymphadenopathy noted Chest inspection of chest normal Respiratory breath sounds equal bilaterally and normal respiratory effort Cardiovascular normal heart rate noted and regular rhythm noted Gastrointestinal abdomen normal to inspection Back/Pelvis spine normal to inspection and paraspinal muscle tenderness noted Extremities normal to inspection Neurology GCS 15 Psychiatry oriented x3 Skin skin color normal Conclusion/Plan Problem List (1) Orthostatic hypotension: Plan: Likely medication effect. She is on multiple blood pressure medications as well as diuretics She had recently reduced her dose of Lasix because of the symptoms Still dehydrated appearing with prolonged skin turgor I am holding her antihypertensives and diuretics for now NS at 100 Recheck orthostatic blood pressure in the morning (2) Back pain: Plan: Her pain is perispinal, I think this may be from deconditioning from prior hospitalization CT scans in ED with no acute concern for surgical need PT/OT consult Scheduled Flexeril Tylenol as needed (3) Bilateral thigh pain: Plan: She has history of neuropathy, this may be progression of the neuropathy Tylenol as above Plan Placed in observation Full code Her is her surrogate decision maker She has not completed a POLST form. I provided this to her and she asked to look over it tonight and we will address it in the morning Lab Results Lab results reviewed: Yes 10/07/24 18:12 Core Measures Anticipated LOS I expect patient to be DC'd or transferred within 96 hours.: Yes DVT/VTE - Prophylaxis VTE/DVT Prophylaxis med ordered at admit?: Yes
[2024-10-07] MEDS ORDERED: ONDANSETRON 4 MG/2 ML VIAL IVP PRN (18:57)
[2024-10-07] MEDS ORDERED: ONDANSETRON ODT 4 MG TABLET TL PRN (18:57)
[2024-10-07] MEDS: SODIUM CHLORIDE 0.9% 1,000 ML IV SCH (19:21)
[2024-10-07] MEDS: SODIUM CHLORIDE FLUSH 0.9% 10 ML SYRINGE IVP PRN (19:21)
[2024-10-07] MEDS: CYCLOBENZAPRINE 10 MG TABLET PO SCH (21:34)
[2024-10-07] MEDS: APIXABAN 5 MG TABLET PO SCH (22:11)
[2024-10-07] MEDS: SODIUM CHLORIDE FLUSH 0.9% 10 ML SYRINGE IVP SCH (23:36)
[2024-10-08] MEDS: ACETAMINOPHEN 325 MG TABLET PO PRN (00:25)
[2024-10-08 05:22] LABS: BASOPHILS % (AUTO) 0.2 %; EOSINOPHILS # (AUTO) 0.1 10^3/uL (0.0-0.7); EOSINOPHILS % (AUTO) 1.3 %; HGB - HEMOGLOBIN 9.3 g/dL (12.0-16.0); LYMPHOCYTES # (AUTO) 0.9 10^3/uL (1.5-3.5); MEAN CORPUSCULAR VOLUME 76.5 fL (81.0-99.0); MEAN PLATELET VOLUME 8.8 fL (7.9-10.8); MONOCYTES # (AUTO) 0.5 10^3/uL (0.0-1.0); MONOCYTES % (AUTO) 11.5 %; NEUTROPHILS # (AUTO) 3.2 10^3/uL (1.5-6.6); NEUTROPHILS % (AUTO) 67.7 %; PLT - PLATELET COUNT 190 10^3/uL (130-450); RED BLOOD COUNT 4.05 10^6/uL (4.20-5.40); RED CELL DISTRIBUTION WIDTH 19.2 % (12.0-15.0); WHITE BLOOD COUNT 4.7 x10^3/uL (4.8-10.8)
[2024-10-08 05:42] LABS: CREATININE 1.1 mg/dL (0.6-1.3); POTASSIUM 4.2 mmol/L (3.5-4.5)
--- NOTE | 2024-10-08 13:17 | PHARMACY PROGRESS NOTE ---
Best Possible Medication History Admit Date and Time: 10/07/24 1806 Home Medications Medication Instructions Recorded Confirmed Type albuterol sulfate 90 mcg/actuation 1 inh inhalation QID PRN shortness 08/09/24 10/08/24 History aerosol inhaler (Ventolin HFA) of breath or wheezing apixaban 5 mg tablet (Eliquis) 5 mg PO BID 08/09/24 10/08/24 History atorvastatin 20 mg tablet (Lipitor) 20 mg PO DAILY 08/09/24 10/08/24 History furosemide 20 mg tablet 20 mg PO BID 08/09/24 10/08/24 History gabapentin 300 mg capsule 300 mg PO HS PRN pain #30 caps 08/09/24 10/08/24 Rx losartan 25 mg tablet 25 mg PO BID 08/09/24 10/08/24 History spironolactone 25 mg tablet 25 mg PO DAILY 08/09/24 10/08/24 History gabapentin 600 mg tablet 600 mg PO TID #90 tabs 08/16/24 10/08/24 Rx metoprolol succinate 25 mg 50 mg PO DAILY 10/08/24 10/08/24 History tablet,extended release 24 hr omeprazole 20 mg capsule,delayed 20 mg PO DAILY 10/08/24 10/08/24 History release potassium chloride 20 mEq 20 meq PO DAILY 10/08/24 10/08/24 History tablet,extended release(part/cryst) (Klor-Con M) tramadol 50 mg tablet 50 mg PO DAILY PRN breakthrough 10/08/24 10/08/24 History pain Processed by: Pharmacy Medications reviewed in ED?: No Medication History completed: Yes Patient Interview: Completed Secondary Source(s): Insurance records [facility] Statement: As the person ultimately responsible for medication therapy, providers are able to order a medication from an existing home medication list in [facility] via the "Reconcile Routine" prior to Confirmation of that medication by unit support representative. Such practice is discouraged except when the physician, in their clinical judgment, deems that a medical need exists for a medication without regard to previous use.
[2024-10-08] MEDS: METOPROLOL SUCCINATE 50 MG TABLET PO SCH (14:37)
--- NOTE | 2024-10-08 14:59 | PROVIDER PROGRESS NOTE ---
Subjective Prog Note Date Prog Note Date: 10/08/24 Subjective Pt reports feeling: No change Current Medications Current Medications Current Medications: Current Medications Generic Name Dose Route Start Last Admin Trade Name Eleno PRN Reason Stop Dose Admin Acetaminophen 650 mg 10/07/24 18:57 10/08/24 00:25 Acetaminophen 325 Mg Tablet PO 650 mg Q4HR PRN Administration Pain 1 to 4, or Fever Apixaban 5 mg 10/07/24 22:00 10/08/24 09:07 Apixaban 5 Mg Tablet PO 5 mg BID FRANKIE Administration Cyclobenzaprine HCl 10 mg 10/07/24 22:00 10/08/24 14:08 Cyclobenzaprine 10 Mg Tablet PO 10 mg TID FRANKIE Administration Sodium Chloride 1,000 mls @ 100 mls/hr 10/07/24 19:00 10/08/24 14:41 Normal Saline 0.9% IV 100 mls/hr .Q10H FRANKIE Administration Metoprolol Succinate 50 mg 10/08/24 14:30 10/08/24 14:37 Metoprolol Succinate 50 Mg Tablet PO 50 mg DAILY FRANKIE Administration Ondansetron HCl 4 mg 10/07/24 18:57 Ondansetron Odt 4 Mg Tablet TL Q6HR PRN Nausea / Vomiting Ondansetron HCl 4 mg 10/07/24 18:57 Ondansetron 4 Mg/2 Ml Vial IVP Q6HR PRN Nausea / Vomiting Sodium Chloride 10 ml 10/07/24 18:57 10/07/24 19:21 Sodium Chloride Flush 0.9% 10 Ml Syringe IVP 10 ml PRN PRN Administration NEEDED PER PROVIDER ORDERS Sodium Chloride 10 ml 10/08/24 01:00 10/08/24 11:33 Sodium Chloride Flush 0.9% 10 Ml Syringe IVP Not Given 0100,0900,1700 [facility] Objective Vital Signs/Intake & Output Reviewed Vital Signs: Yes Vital Signs: Vital Signs x48h Temp Pulse Resp BP Pulse Ox 10/08/24 12:11 37.0 C 99 20 114/64 95 10/08/24 09:00 36.6 C 96 19 95/62 95 Intake & Output: Intake & Output 10/05/24 10/06/24 10/07/24 10/08/24 23:59 23:59 23:59 23:59 Intake Total 1693 / 1693 2338 / 2338 Output Total 50 / 50 Balance 1643 / 1643 2337 Weight (kg) 88.5 kg Objective General Appearance: positive No acute distress and Alert Eyes Bilateral: positive Normal inspection and PERRL ENT: positive ENT inspection nml Neck: positive Nml inspection Respiratory: positive Chest non-tender Cardiovascular: positive Irregularly irregular Abdomen: positive Non-tender Skin: positive Color nml Extremities: positive Non-tender Neurologic/Psychiatric: positive Oriented x3 Lab Results 10/08/24 05:15 10/08/24 05:15 Other Labs: Lab Results x24hrs 10/08/24 10/07/24 10/07/24 Range/Units 05:15 18:12 17:01 WBC 4.7 L (4.8-10.8) x10^3/uL RBC 4.05 L (4.20-5.40) 10^6/uL Hgb 9.3 L (12.0-16.0) g/dL Hct 31.0 L (37.0-47.0) % MCV 76.5 L (81.0-99.0) fL MCH 23.0 L (27.0-31.0) pg MCHC 30.0 L (32.0-36.0) g/dL RDW 19.2 H (12.0-15.0) % Plt Count 190 (130-450) 10^3/uL MPV 8.8 (7.9-10.8) fL Neut # (Auto) 3.2 (1.5-6.6) 10^3/uL Lymph # (Auto) 0.9 L (1.5-3.5) 10^3/uL [place] # (Auto) 0.5 (0.0-1.0) 10^3/uL Eos # (Auto) 0.1 (0.0-0.7) 10^3/uL Baso # (Auto) 0.0 (0.0-0.1) 10^3/uL Absolute Nucleated RBC 0.00 x10^3/uL Nucleated RBC % 0.0 /100WBC Sodium 131 L 130 L (135-145) mmol/L Potassium 4.2 (3.5-4.5) mmol/L Chloride 98 L (101-111) mmol/L Carbon Dioxide 28 (21-32) mmol/L Anion Gap 5.0 L (6-13) BUN 32 H (6-20) mg/dL Creatinine 1.1 (0.6-1.3) mg/dL Estimated GFR (MDRD) 48 L (>89) Glucose 86 (74-104) mg/dL Lactic Acid 1.0 (0.5-2.2) mmol/L Calcium 8.0 L (8.5-10.3) mg/dL Assessment/Plan Problem List (1) Orthostatic hypotension: Impression: Orthostatic vital signs today are as follows Supine BP 118/68, pulse 106 Sitting BP 115/73 pulse 116 Standing BP 107/67 pulse 129 Her orthostasis was likely secondary to dehydration and medication effect. I have held all of her blood pressure meds, but restarted her metoprolol today after she was noted to be tachycardic during vital signs checked She is now medically clear, but PT recommends that she go to a SNF at this time I am continuing IV fluids and continuing to hold her blood pressure meds for now (2) Back pain: Impression: Likely secondary to deconditioning from prior hospitalization Scheduled Flexeril Continue PT/OT (3) Bilateral thigh pain: Impression: Bilateral thigh pain active during exercise Back imaging not concerning for any surgical emergency Pain management with Tylenol and Flexeril
--- NOTE | 2024-10-08 15:22 | PT Plan of Care ---
PT Inpatient Plan of Care DIAGNOSIS Diagnosis: hyponatremia and postural hypotension Diagnosis: LBP Referring Provider: Raul Gifford Patient Status: Observation CHIEF COMPLAINT Chief Complaint: LBP, dizziness, anterior B thigh pain when wt bearing Onset of Chief Complaint: CERAMIST on 10/07/24 BALANCE/FUNCTIONAL RESULTS Sitting Balance: Fair Standing Balance: Poor Tinetti Composite Score (Balance + Gait): 5 Tinetti Assessment Interpretation: High Fall Risk ASSESSMENT Assessment: The pt is an 79 y/o F who arrived to the ED on 10/07/24 due to worsening LBP and dizziness, she was hospitalized with hyponatremia. Per the chart about 1 week ago she was in [facility] 2/2 postural hypotensive issues and DC'd home, please see chart for complete medical hx. The pt was received resting supine in bed while receiving medication from RN. She presented today with mild B LE strength deficits, decreased activity tolerance, and increased anxiety with any transfers/mobility. LBP and B anterior thigh pain limited her tolerance with functional mobility throughout this assessment. Her systolic BP did drop slightly with each positional change, beginning at 118 when supine, 115 when seated, and 107 when standing. Her diastolic BP changes were equivocal beginning at 68 in supine, 73 seated, and 67 standing. Her pulse did vary with each positional change beginning at 106 in supine, 116 seated, and 129 standing. Her overall tolerance throughout this assessment was limited by anxiety and pain. RN was present and assisting throughout due to the pt's functional limitations. At this time recommend continued skilled PT intervention while in the acute setting and DC to SNF for further rehab once pt medically stable. At the end of the session the pt was supine in bed with call light in reach and all needs met. RN and DNP updated on pt's status and DC rec. PATIENT/FAMILY GOALS Patient/Family Goals: To stop hurting and get stronger so I can go back home GOALS Improve supine to sit to:: Modified Independent Improve sit to stand to:: Modified Independent Improve pivot transfer ability to:: Modified Independent Improve sit to supine to:: Modified Independent Improve gait ability to:: Ind Advance Assistive Device to:: Front Wheeled Walker Increase distance walked to (in feet):: 25 Improve Lower Extremity ROM to:: WFL Improve Lower Extremity Strength to:: Fair Improve Sitting Balance to:: Good PLAN Frequency: 1-2x/day Duration: Until discharge DISCHARGE RECOMMENDATIONS Discharge Location: [facility] Facility DC Equipment Recommended: Front wheeled walker Other Discharge Equipment: Has loaner walker Transport Needs at Discharge: [email or web address] Other: BLS due to pt's limited tolerance with mobility
[2024-10-08] MEDS: ACETAMINOPHEN 500 MG TABLET PO SCH (17:54)
[2024-10-08] MEDS: KETOROLAC 15 MG/ML VIAL IVP STA (17:54)
[2024-10-09 04:41] LABS: BASOPHILS % (AUTO) 0.6 %; EOSINOPHILS % (AUTO) 0.9 %; HGB - HEMOGLOBIN 8.8 g/dL (12.0-16.0); LYMPHOCYTES # (AUTO) 0.8 10^3/uL (1.5-3.5); LYMPHOCYTES % (AUTO) 22.7 %; MEAN CORPUSCULAR HEMOGLOBIN 22.6 pg (27.0-31.0); MEAN CORPUSCULAR HGB CONC 29.3 g/dL (32.0-36.0); MEAN CORPUSCULAR VOLUME 77.1 fL (81.0-99.0); MEAN PLATELET VOLUME 9.1 fL (7.9-10.8); MONOCYTES # (AUTO) 0.5 10^3/uL (0.0-1.0); MONOCYTES % (AUTO) 13.9 %; NEUTROPHILS # (AUTO) 2.1 10^3/uL (1.5-6.6); NEUTROPHILS % (AUTO) 60.4 %; PLT - PLATELET COUNT 169 10^3/uL (130-450); RED BLOOD COUNT 3.89 10^6/uL (4.20-5.40); RED CELL DISTRIBUTION WIDTH 19.4 % (12.0-15.0); WHITE BLOOD COUNT 3.4 x10^3/uL (4.8-10.8)
[2024-10-09 04:56] LABS: CREATININE 0.9 mg/dL (0.6-1.3); POTASSIUM 4.1 mmol/L (3.5-4.5)
[2024-10-09 14:56] VITALS: TEMP 97.3
--- NOTE | 2024-10-09 15:02 | Discharge Summary ---
Discharge Summary Admit Date: 10/07/24 Discharge Date: 10/09/24 Discharging Provider: Raul Gifford NP Primary Care Provider: Eveline Morelos Code Status: Attempt Resuscitation DIAGNOSES Admission Diagnoses: Hyponatremia Orthostatic hypotension Back pain Bilateral thigh pain Discharge Diagnoses with Status of Each Condition: Hyponatremiaresolved Orthostatic hypotensionresolved Back painimproved with Tylenol Bilateral thigh painimproved with Tylenol HPI History of Present Illness: 79-year-old female with history of A-fib on Eliquis presents to the hospital with back and thigh pain. She states that she was recently admitted to [facility] for low blood pressure and sent home about a week ago. She states that her back pain has been getting worse since then. She describes this as spasmic perispinal pain. Her endorses that she is required assistance getting off the toilet. In the ER, CT of L-spine was unimpressive. Lab work revealed a increase in her creatinine to 1.4 as well as a sodium of 129. ER staff attempted to get her to ambulate, but she experienced orthostatic hypotension. She reports being on a total of 60 mg of Lasix a day, but this has been recently reduced due to same symptoms. She was given 1 L of NS and hospitalist was contacted for admission for hyponatremia, orthostatic hypotension with dizziness and back pain HOSPITAL COURSE Hospital Course: She was placed in observation for hyponatremia and orthostatic hypotension and started on IV saline. Her hyponatremia corrected and her orthostatic blood pressures improved after 1 day. She was evaluated by physical therapy, who recommended SNF placement. She was held another day while waiting on placement and has improved enough and that 1 day that reeval by physical therapy reports safe discharge to home. I have held her Lasix and her blood pressure medicines and told her to restart these when she begins to experience swelling in her legs or high blood pressure, respectively. I instructed her to follow-up with her PCP regarding further management. Her back pain was controlled with Tylenol and Flexeril. Have discharged her with a prescription for Flexeril and encouraged her to remain as mobile as possible. I also ordered a home health PT referral ALLERGIES Allergies Allergy/AdvReac Type Severity Reaction Status Date / Time codeine Allergy severe Verified 10/07/24 12:26 lethargy MEDICATIONS Ambulatory Orders Medication Instructions Recorded Confirmed albuterol sulfate 90 mcg/actuation 1 inh inhalation QID PRN shortness 08/09/24 10/08/24 aerosol inhaler (Ventolin HFA) of breath or wheezing apixaban 5 mg tablet (Eliquis) 5 mg PO BID 08/09/24 10/08/24 atorvastatin 20 mg tablet (Lipitor) 20 mg PO DAILY 08/09/24 10/08/24 furosemide 20 mg tablet 20 mg PO BID 08/09/24 10/08/24 gabapentin 300 mg capsule 300 mg PO HS PRN pain #30 caps 08/09/24 10/08/24 losartan 25 mg tablet 25 mg PO BID 08/09/24 10/08/24 spironolactone 25 mg tablet 25 mg PO DAILY 08/09/24 10/08/24 gabapentin 600 mg tablet 600 mg PO TID #90 tabs 08/16/24 10/08/24 metoprolol succinate 25 mg 50 mg PO DAILY 10/08/24 10/08/24 tablet,extended release 24 hr omeprazole 20 mg capsule,delayed 20 mg PO DAILY 10/08/24 10/08/24 release potassium chloride 20 mEq 20 meq PO DAILY 10/08/24 10/08/24 tablet,extended release(part/cryst) (Klor-Con M) tramadol 50 mg tablet 50 mg PO DAILY PRN breakthrough 10/08/24 10/08/24 pain cyclobenzaprine 10 mg tablet 10 mg PO TID 30 days #90 tabs 10/09/24 PHYSICAL EXAM AT DISCHARGE Vital Signs: Vital Signs x48h Temp Pulse Resp BP Pulse Ox 10/09/24 15:42 36.3 C L 87 18 122/57 L 98 10/09/24 15:37 36.8 C 75 20 112/52 L 93 10/09/24 13:00 36.3 C L 81 20 120/74 92 General Appearance: positive No acute distress and Alert Eyes Bilateral: positive Normal inspection and PERRL ENT: positive ENT inspection nml Neck: positive Nml inspection Respiratory: positive Chest non-tender Cardiovascular: positive Regular rate & rhythm Peripheral Pulses: positive 2+ Abdomen: positive Non-tender Back: positive Nml inspection Skin: positive Color nml Extremities: positive Non-tender Neurologic/Psychiatric: positive Oriented x3 LABS 10/09/24 04:12 10/09/24 04:12 FOLLOW UP Follow Up: With PCP TIME SPENT Time Spent in Discharge (Minutes): 25 Discharge Plan Discharge Patient Disposition: Home, Self Care Medically Cleared Date:: 10/09/24 Prescriptions: New cyclobenzaprine 10 mg Tablet 10 mg PO TID 30 Days Qty: 90 0RF Continued metoprolol succinate 25 mg tablet extended release 24 hr 50 mg PO DAILY omeprazole 20 mg capsule,delayed release(DR/EC) 20 mg PO DAILY tramadol 50 mg tablet 50 mg PO DAILY PRN (Reason: breakthrough pain) gabapentin 600 mg tablet 600 mg PO TID Qty: 90 2RF albuterol sulfate [Ventolin HFA] 90 mcg/actuation HFA aerosol inhaler 1 inh inhalation QID PRN (Reason: shortness of breath or wheezing) Eliquis 5 mg tablet 5 mg PO BID atorvastatin [Lipitor] 20 mg tablet 20 mg PO DAILY gabapentin 300 mg capsule 300 mg PO HS PRN (Reason: pain) Qty: 30 2RF Held potassium chloride [Klor-Con M20] 20 mEq tablet,ER particles/crystals 20 meq PO DAILY Hold Instructions: Restart when your Lasix resumes furosemide 20 mg tablet 20 mg PO BID Hold Instructions: Resume on 10/16/24. Hold until you see signs of leg swelling. Or as otherwise directed by your PCP losartan 25 mg tablet 25 mg PO BID Hold Instructions: Hold while your blood pressure is low, resume if it starts to become high again or as otherwise directed by your PCP spironolactone 25 mg tablet 25 mg PO DAILY Hold Instructions: Until otherwise directed by your PCP Diet: Regular Interventions: Belongings Inventory Last Done: 10/09/24 15:42 Discharge Last Done: 10/09/24 15:42 Discharge Checklist - Nursing Last Done: 10/09/24 15:42 Health Concerns: You came into the hospital because you were having back pain and dizziness. In the ER, you were noted to have was called orthostatic hypotension. This is when your blood pressure drops when you stand up. I believe that this is due to dehydration from diuretic use. I held you in the hospital for a few days and gave you fluids by your IV while holding all blood pressure and diuretic medications. Your orthostatic low blood pressure has resolved and I am sending you home. Please hold blood pressure meds and Lasix until you see signs of high blood pressure or leg swelling, respectively. I have ordered home health PT/OT. He also complained of back pain. I believe that if you work with physical therapy to strengthen your back and move around is much as possible that this pain can be better managed. I would encourage you to take [id number] Tylenol for pain. I have also written an order for Flexeril, which is a muscle relaxer that we have been giving you while you are in the hospital. Please follow-up with your PCP regarding further management Print Language: Turkish Patient Instructions: ED Exercises Lumbar Muscles Follow-up Care: EVELINE MORELOS ARNP [Primary Care Provider] -
[2024-10-09 15:44] VITALS: BP 122/57; O2SAT 98
--- NOTE | 2024-10-10 14:16 | CT Report ---
PROCEDURE: LUMBAR SPINE WO INDICATIONS: low back pain TECHNIQUE: Noncontrast 3 mm thick sections acquired from the T12 level to the sacrum. Sagittal and coronal refo rmats were constructed. For radiation dose reduction, the following was used: automated exposure co ntrol, adjustment of mA and/or kV according to patient size. COMPARISON: None. FINDINGS: Image quality: Excellent. Bones: There is several millimeter anterolisthesis of L4 on L5. 2 mm retrolisthesis of L5 on S1 is a lso seen. No acute vertebral body compression fractures. No suspicious lytic or blastic bony lesions . No gross pars defects. T12-L1: Normal in appearance. L1-L2: Normal in appearance. L2-L3: Normal in appearance. L3-L4: Mild broad-based disc bulge and bilateral facet arthrosis is seen with mild central canal st enosis and right-sided neural foraminal narrowing. L4-L5: Vacuum disc phenomenon is seen. Broad-based disc bulge and bilateral facet arthrosis with mo derate central canal stenosis and bilateral neural foraminal narrowing. L5-S1: Vacuum disc phenomenon and loss of disc height. Diffuse disc bulge and bilateral facet arthr osis with mild central canal stenosis and moderate to severe bilateral neural foraminal narrowing. Soft tissues: No retroperitoneal masses or hematomas. Visualized aorta is normal in caliber. IMPRESSION: 1. Grade 1 anterolisthesis of L4 on L5 and grade 1 retrolisthesis of L5 on S1. No acute lumbar spine fracture or dislocation. No suspicious bony lesions. No gross pars defects. 2. Multilevel spondylitic changes in lower lumbar spine at L3-4 to L5-S1 levels causing various degre es of central canal stenosis and bilateral neural foraminal narrowing as above. Reviewed by: Sagar Solis MD on 10/07/2024 2:41 PM PDT Approved by: Sagar Solis MD on 10/07/2024 2:41 PM PDT Station ID: [id number]
--- NOTE | 2024-10-12 15:10 | XRAY Report ---
PROCEDURE: Hip 1 View LT INDICATIONS: BILATERAL HIP PAIN TECHNIQUE: 5 views of the hip were acquired. COMPARISON: None. FINDINGS: Bones: No fractures or dislocations. Mild bilateral hip joint osteophytic changes are seen. No evide nce of avascular necrosis of femoral head. No suspicious bony lesions. Soft tissues: No suspicious soft tissue calcifications or masses. IMPRESSION: No acute pelvic or hip fracture. No evidence of avascular necrosis. Reviewed by: Sagar Shane MD on 10/07/2024 1:50 PM PDT Approved by: Sagar Shane MD on 10/07/2024 1:50 PM PDT Station ID: [id number]
== END 2024-10-09 15:44 | disposition home or self-care (01) ==
LOC: MS2 12:22 → ED 12:22 → MS2 18:31
PROVIDERS: ADMIT Nurse Practitioner Acute Care; ATTEND Nurse Practitioner Acute Care
DX: M79.651 Pain in right thigh; R53.1 Weakness; I95.1 Orthostatic hypotension; R00.0 Tachycardia, unspecified; M79.652 Pain in left thigh; Z79.01 Long term (current) use of anticoagulants; M54.50 Low back pain, unspecified; I48.91 Unspecified atrial fibrillation; E87.1 Hypo-osmolality and hyponatremia; E86.0 Dehydration